=== PATIENT | male | born 1960 | race Caucasian/White ===

== ENCOUNTER 2023-02-01 09:26 | Inpatient (IN) | payer MEDICARE, OTHER ==
[2023-02-01] VITALS (14 sets, daily range): BP systolic 141–201; BP diastolic 59–91; PULSE 64–87; RESP 18–20; TEMP 98.2–98.3
[~2023-02-01] VITALS: Ht 170.2 cm; Wt 76.2 kg
[~2023-02-01 09:26] MED LIST: ASPI-1450 PO; ASPIRIN 81 MG CHEWABLE TABLET PO ONE; CARV25 PO; DIAZEPAM 5 MG TABLET PO ONE; DiphenhydrAMINE HCL 50 MG CAPSULE PO ONE; HYDR50TA36 PO; LISI-894 PO; NIFE-129 PO; ROSU10TA72 PO; SEVE800T17 PO; SITA50 PO; SODIUM CHLORIDE 0.9% 1,000 ML IV ONE; SODIUM CHLORIDE 0.9% 1,000 ML ONE; TAMS0.4C94 PO
[2023-02-01 10:46] LABS: GLUCOMETER DEV NAME(LOC) SDS.; GLUCOSE,POINT OF CARE 84 MG/DL (70-110)
[2023-02-01] MEDS ORDERED: DIAZEPAM 5 MG TABLET ONE (12:49)
[2023-02-01] MEDS ORDERED: ASPIRIN 81 MG CHEWABLE TABLET ONE (12:49)
[2023-02-01] MEDS ORDERED: DiphenhydrAMINE HCL 50 MG CAPSULE ONE (12:49)
[2023-02-01] MEDS ORDERED: SODIUM BICARBONATE 50 MEQ/50 ML VIAL ONE (15:01)
[2023-02-01] MEDS ORDERED: LIDOCAINE/PF 1% 30 ML VIAL ONE (15:01)
[2023-02-01] MEDS ORDERED: IOHEXOL 300 MG/ML 100 ML VIAL ONE (15:02)
[2023-02-01] MEDS ORDERED: HEPARIN SODIUM 1000 UNITS/NS 1,000 ML ONE (15:18)
[2023-02-01] MEDS ORDERED: MIDAZOLAM HCL 2 MG/2 ML VIAL ONE (15:35)
[2023-02-01] MEDS ORDERED: FentaNYL CITRATE PF 100 MCG/2 ML VIAL ONE (15:35)
[2023-02-01] MEDS ORDERED: LIDOCAINE 1% 30 ML/SOD BICARB 8.4% 4 ML SQ ONE (15:45)
[2023-02-01] MEDS ORDERED: MIDAZOLAM HCL 2 MG/2 ML VIAL IVP ONE (15:45)
[2023-02-01] MEDS ORDERED: IOHEXOL 300 MG/ML 100 ML VIAL IARTER ONE (15:45)
[2023-02-01] MEDS ORDERED: FentaNYL CITRATE PF 100 MCG/2 ML VIAL IVP ONE (15:45)
[2023-02-01] MEDS ORDERED: HEPARIN SODIUM 1000 UNITS/NS 1,000 ML IARTER ONE (15:45)
[2023-02-01] MEDS ORDERED: HydrALAZINE HCL 20 MG/ML VIAL ONE (15:46)
[2023-02-01] MEDS ORDERED: HEPARIN SODIUM,PORCINE 1,000 UNITS/ML 10 ML VIAL IVP ONE (16:00)
[2023-02-01] MEDS ORDERED: HydrALAZINE HCL 20 MG/ML VIAL IVP ONE ×2 (16:00)
[2023-02-01] MEDS ORDERED: METOPROLOL TARTRATE 5 MG/5 ML VIAL ONE (16:17)
[2023-02-01] MEDS ORDERED: METOPROLOL TARTRATE 5 MG/5 ML VIAL IVP ONE (16:30)
[2023-02-01] MEDS ORDERED: ASPIRIN 325 MG TABLET ONE (16:33)
[2023-02-01] MEDS ORDERED: CLOPIDOGREL BISULFATE 75 MG TABLET ONE (16:33)
[2023-02-01] MEDS ORDERED: CLOPIDOGREL BISULFATE 75 MG TABLET PO ONE (16:45)
[2023-02-01] MEDS ORDERED: ASPIRIN 325 MG TABLET PO ONE (16:45)
[2023-02-01] MEDS ORDERED: ACETAMINOPHEN 325 MG TABLET PO PRN (17:00)
[2023-02-01] MEDS ORDERED: INSULIN LISPRO 100 UNITS/ML SQ PRN (17:00)
[2023-02-01] MEDS ORDERED: ONDANSETRON HCL 4 MG/2 ML VIAL IVP PRN (17:00)
[2023-02-01] MEDS ORDERED: DEXTROSE 50%-WATER 25 GM/50 ML SYRINGE IVP PRN (17:00)
[2023-02-01 19:48] LABS: CALCIUM, TOTAL 9.2 mg/dL (8.8-10.5); CREATININE 6.95 mg/dL (0.60-1.30); POTASSIUM 5.1 mmol/L (3.5-5.1)
[2023-02-01] MEDS: HydrALAZINE HCL 20 MG/ML VIAL IVP PRN (20:13)
[2023-02-01] MEDS: DOCUSATE SODIUM 100 MG CAPSULE PO SCH (21:00)
[2023-02-01] MEDS: CARVEDILOL 12.5 MG TABLET PO SCH (21:19)
[2023-02-01] MEDS: NITROGLYCERIN 2% (1 GM=INCH) OINTMENT PACKET TP SCH (23:35)
[2023-02-02] VITALS (18 sets, daily range): BP systolic 79–203; BP diastolic 46–87; PULSE 55–79; RESP 16–19; TEMP 97.2–98.7
[2023-02-02 03:16] LABS: GLUCOMETER DEV NAME(LOC) 5S.1B; GLUCOSE,POINT OF CARE 79 MG/DL (70-110)
[2023-02-02 03:16] LABS: GLUCOMETER DEV NAME(LOC) 5S.1B; GLUCOSE,POINT OF CARE 102 MG/DL (70-110)
[2023-02-02] MEDS: HydrALAZINE HCL 20 MG/ML VIAL IVP PRN ×2 (04:38→17:31)
[2023-02-02] MEDS: NITROGLYCERIN 2% (1 GM=INCH) OINTMENT PACKET TP SCH ×3 (06:05→18:02)
[2023-02-02 06:29] LABS: BASOPHILS % (AUTO) 1.3 % (0.0-2.0); EOSINOPHILS % (AUTO) 8.8 % (1.0-6.0); HEMATOCRIT 30.7 % (41-53); HEMOGLOBIN 10.5 g/dL (13.5-17.5); LYMPHOCYTES % (AUTO) 17.4 % (22.0-44.0); MEAN CORPUSCULAR HEMOGLOBIN 34.6 pg (26.0-34.0); MEAN CORPUSCULAR HGB CONC 34.1 G/dL (31.0-37.0); MEAN CORPUSCULAR VOLUME 102 fL (80-100); MONOCYTES # (AUTO) 0.4 K/uL (0.1-1.0); MONOCYTES % (AUTO) 7.2 % (2.0-9.0); NEUTROPHILS # (AUTO) 3.6 K/uL (1.8-7.7); NEUTROPHILS % (AUTO) 65.3 % (40.0-70.0); PLATELET COUNT (AUTO) 142 K/uL (150-450); RED BLOOD CELL COUNT(AUTO) 3.02 MIL/uL (4.50-5.90); RED CELL DISTRIBUTION WIDTH 14.5 % (11.5-14.5); WHITE BLOOD COUNT (AUTO) 5.5 K/uL (4.5-11.0)
[2023-02-02 06:40] LABS: ALBUMIN 3.2 g/dL (3.4-5.0); BILIRUBIN,TOTAL 0.4 mg/dL (0.1-1.0); CALCIUM, TOTAL 9.2 mg/dL (8.8-10.5); CREATININE 7.79 mg/dL (0.60-1.30); POTASSIUM 5.6 mmol/L (3.5-5.1); TOTAL PROTEIN, SERUM 6.8 g/dL (6.4-8.2)
[2023-02-02] MEDS: ROSUVASTATIN CALCIUM 10 MG TABLET PO SCH (08:06)
[2023-02-02] MEDS: CARVEDILOL 12.5 MG TABLET PO SCH ×2 (08:06→20:44)
[2023-02-02] MEDS: FAMOTIDINE 20 MG TABLET PO SCH (08:06)
[2023-02-02] MEDS: ASPIRIN 81 MG CHEWABLE TABLET PO SCH (08:07)
[2023-02-02] MEDS: DOCUSATE SODIUM 100 MG CAPSULE PO SCH ×2 (08:07→20:46)
[2023-02-02] MEDS: FOLIC ACID/VIT B COMPLEX AND C TABLET PO SCH (13:57)
[2023-02-02 20:16] LABS: GLUCOMETER DEV NAME(LOC) 5S.2C; GLUCOSE,POINT OF CARE 128 MG/DL (70-110)
[2023-02-02 20:26] LABS: GLUCOMETER DEV NAME(LOC) 5N.1C; GLUCOSE,POINT OF CARE 75 MG/DL (70-110)
[2023-02-02] MEDS ORDERED: HydrALAZINE HCL 20 MG/ML VIAL IVP ONE (20:30)
[2023-02-02] MEDS ORDERED: NIFE30TA5 PO (20:36)
[2023-02-02] MEDS ORDERED: ASPI-1444 PO (20:36)
[2023-02-02] MEDS ORDERED: SACU1TAB7 PO (20:36)
[2023-02-02] MEDS ORDERED: TERAZOSIN HCL 2 MG CAPSULE PO SCH (21:00)
[2023-02-02 21:51] LABS: GLUCOMETER DEV NAME(LOC) 5S.2C; GLUCOSE,POINT OF CARE 159 MG/DL (70-110)
[2023-02-03] MEDS: NITROGLYCERIN 2% (1 GM=INCH) OINTMENT PACKET TP SCH ×3 (00:07→11:27)
[2023-02-03 00:19] VITALS: BP 164/66; PULSE 68; RESP 18; TEMP 98.2
[2023-02-03 03:01] LABS: GLUCOMETER DEV NAME(LOC) 5S.1B; GLUCOSE,POINT OF CARE 92 MG/DL (70-110)
[2023-02-03 04:00] VITALS: BP 162/82; PULSE 77; RESP 16; TEMP 98.5
[2023-02-03] MEDS: HydrALAZINE HCL 20 MG/ML VIAL IVP PRN (04:32)
[2023-02-03 07:17] VITALS: BP 158/62; PULSE 67; RESP 18; TEMP 98.2
[2023-02-03 07:56] LABS: GLUCOMETER DEV NAME(LOC) 5S.1B; GLUCOSE,POINT OF CARE 91 MG/DL (70-110)
[2023-02-03] MEDS: CARVEDILOL 12.5 MG TABLET PO SCH (07:58)
[2023-02-03] MEDS: FOLIC ACID/VIT B COMPLEX AND C TABLET PO SCH (07:58)
[2023-02-03] MEDS: FAMOTIDINE 20 MG TABLET PO SCH (07:58)
[2023-02-03] MEDS: ASPIRIN 81 MG CHEWABLE TABLET PO SCH (07:59)
[2023-02-03] MEDS: DOCUSATE SODIUM 100 MG CAPSULE PO SCH ×2 (07:59→08:05)
[2023-02-03] MEDS: ROSUVASTATIN CALCIUM 10 MG TABLET PO SCH (07:59)
[2023-02-03] MEDS ORDERED: CLOP75TA60 PO (09:47)
[2023-02-03] MEDS ORDERED: AmLODIPine BESYLATE 5 MG TABLET PO SCH (10:00)
[2023-02-03] MEDS ORDERED: CLOPIDOGREL BISULFATE 75 MG TABLET PO SCH (10:00)
[2023-02-03 12:13] VITALS: BP 178/68; PULSE 61; RESP 18; TEMP 98.5
[2023-02-03 17:01] LABS: GLUCOMETER DEV NAME(LOC) 5S.2C; GLUCOSE,POINT OF CARE 119 MG/DL (70-110)
== END 2023-02-03 13:45 | disposition home or self-care (01) | DRG 250 ==
LOC: CATHLAB 09:26 → 5S 09:27 → UNDOADMIN 18:35
PROVIDERS: ADMIT Internal Medicine; ATTEND Internal Medicine
PROC: 02703ZZ Dilation of Coronary Artery, One Artery, Percutaneous Approach (ICD-10-PCS; principal; 2023-02-01)
PROC: 4A023N7 Measurement of Cardiac Sampling and Pressure, Left Heart, Percutaneous Approach (ICD-10-PCS; 2023-02-01)
PROC: B2111ZZ Fluoroscopy of Multiple Coronary Arteries using Low Osmolar Contrast (ICD-10-PCS; 2023-02-01)
PROC: B41F1ZZ Fluoroscopy of Right Lower Extremity Arteries using Low Osmolar Contrast (ICD-10-PCS; 2023-02-01)
PROC: 5A1D70Z Performance of Urinary Filtration, Intermittent, Less than 6 Hours Per Day (ICD-10-PCS; 2023-02-02)
DX: I25.10 Atherosclerotic heart disease of native coronary artery without angina pectoris (principal); N18.6 End stage renal disease; I12.0 Hypertensive chronic kidney disease with stage 5 chronic kidney disease or end stage renal disease; E11.22 Type 2 diabetes mellitus with diabetic chronic kidney disease; Z79.82 Long term (current) use of aspirin; Z99.2 Dependence on renal dialysis; Z79.899 Other long term (current) drug therapy; Z79.84 Long term (current) use of oral hypoglycemic drugs; Z83.3 Family history of diabetes mellitus
CPT/HCPCS: 80048; 80053; 82962; 85025; 87081; 87340; 90935; 92920; 93005; J0360; J1644; J2250; J2405; J3010; J3490; J7030; Q9967